=== PATIENT | male | born 2000 | race Two or more races ===

== ENCOUNTER 2022-05-01 21:32 | Emergency (ER) | payer MEDICAID ==
[~2022-05-01] VITALS: Ht 165.1 cm; Wt 63.5 kg
[~2022-05-01 21:32] MED LIST: LAMO25TA2; LEVAAER4; MIRT-68; OXCA300T26; Q VAR; SERT50TA
[2022-05-01 23:38] LABS: Basophils # (auto) 0 10 ^3/uL (0-0.2); Basophils % (auto) 0.3 % (0.0-2.0); Eosinophils # (auto) 0.2 10 ^3/uL (0-0.8); Eosinophils % (auto) 1.2 % (0.0-7.0); Hemoglobin 16.1 g/dL (13.5-17.5); Lymphocytes # (auto) 1.5 10 ^3/uL (0.4-5.4); Lymphocytes % (auto) 12.5 % (10.0-50.0); Mean Corpuscular Hemoglobin 29.8 pg (28.0-32.0); Mean Corpuscular Hgb Conc. 33.5 g/dL (32.0-36.0); Monocytes # (auto) 0.6 10 ^3/uL (0-1.3); Monocytes % (auto) 4.8 % (0.0-12.0); Neutrophils # (auto) 9.8 10 ^3/uL (1.6-8.6); Neutrophils % (auto) 81.2 % (37.0-80.0); Red Blood Cells 5.39 10^6/uL (4.5-5.90); Red Cell Distribution Width 13.2 % (11.8-14.3); White Blood Cell 12.1 10^3/uL (4.4-10.8)
[2022-05-01 23:58] LABS: Salicylate < 1.7 mg/dL (2.8-20.0)
[2022-05-01 23:59] LABS: Albumin 3.9 g/dL (3.4-5.0); Calcium 8.8 mg/dL (8.5-10.1); Potassium 3.7 mmol/L (3.5-5.1)
[2022-05-02] LABS: Acetaminophen < 2.0 ug/mL (10-30)
[2022-05-02 00:02] LABS: BUN/Creatinine Ratio 14.1; Bilirubin, Total 0.3 mg/dL (0.2-1.0); Total Protein 7.3 g/dL (6.4-8.2)
[2022-05-02 01:03] LABS: Amphetamine Screen, Urine NEGATIVE (NEGATIVE); Barbiturate Scree,Urine NEGATIVE (NEGATIVE); Benzodiazephine Screen, Urine NEGATIVE (NEGATIVE); Cannabinoid Screen, Urine POSITIVE (NEGATIVE); Cocaine Screen, Urine NEGATIVE (NEGATIVE); Opiate Scree,Urine NEGATIVE (NEGATIVE); Phencyclidine Screen, Urine NEGATIVE (NEGATIVE)
[2022-05-03 15:25] VITALS: BP 130/82
== END 2022-05-03 16:41 | disposition short-term general hospital (02) ==
LOC: EDUNIT# 21:32 → EDBD 21:32 → ER 21:35
DX: R45.851 Suicidal ideations (principal)
CPT/HCPCS: 36415; 80053; 80307; 80320; 80329; 85025; 93005